=== PATIENT | female | born 1940 | race Caucasian/White ===

== ENCOUNTER 2017-09-10 16:09 | Inpatient (IN) ==
[2017-09-10 17:06] LABS: Basophils # 0.1 10*3/uL (0.0-0.2); Basophils % 0.6 % (0.0-0.8); Eosinophils # 0.3 10*3/uL (0.0-0.87); Eosinophils % 2.2 % (0.00-10.9); Hematocrit 39.2 VOL% (35.7-47.0); Hemoglobin 13.4 GM/DL (12.0-16.0); Immature Granulocytes % 0.6 %; Immature Granulocytes Absolute 0.08 #; Lymphocytes # 2.2 10*3/uL (1.4-4.0); Lymphocytes % 15.3 % (21.3-54.2); Mean Corpuscular HGB Conc 34.2 GM/DL (32-36); Mean Corpuscular Hemoglobin 34 PG (27-34); Mean Platelet Volume 9.7 FL (9.6-12.0); Monocytes # 1.1 10*3/uL (0.11-0.8); Monocytes % 7.8 % (1.7-12.7); Neutrophils # 10.6 10*3/uL (1.4-7.4); Neutrophils % 73.5 % (38.7-73.9); Platelet Count 350 T/CUMM (130-400); Red Blood Count 3.92 MC/CUMM (3.8-5.5); Red Cell Distribution Width 12.6 % (9.3-17.3); White Blood Count 14.4 T/CUMM (4-12)
[2017-09-10 17:14] LABS: PT Patient Result 10.8 SECS; Partial Thromboplastin Time 24.9 SECS (0-40)
[2017-09-10 17:27] LABS: Alanine Aminotransferase 31 U/L (13-56); Albumin 3.7 G/DL (3.4-5.0); Alkaline Phosphatase 56 U/L (45-117); Amylase 13 U/L (25-115); Aspartate Amino Transferase 21 U/L (0-37); Bilirubin,Total < 0.39 MG/DL (0.2-1.0); Blood Urea Nitrogen 27 MG/DL (7-18); Glucose 113 MG/DL (74-106); Sodium 136 MMOL/L (136-145)
[2017-09-10 17:28] LABS: Troponin I Only < 0.015 NG/ML (0.00-0.045)
[2017-09-10] MEDS ORDERED: SODIUM CHLORIDE 0.9% 1,000 ML IV STA (17:40)
[2017-09-10 18:07] LABS: Lactic Acid 1.5 MMOL/L (0.4-2.0)
[2017-09-10 18:51] LABS: Apearance,Urine CLEAR (Clear); Bilirubin,Urine Negative (Negative); Blood, Urine Moderate mg/dL (Negative); Glucose,Urine (UA) Negative (Negative); Hyaline Casts,Urine 3 /LPF (0-3); Ketones,Urine Negative (Negative); Mucus,Urine Occasional /LPF (Occasional); Nitrite,Urine Negative (Negative); Protein,Urine Negative; RBC,Urine 14 /HPF (0-4); Squamous Epithelial Cell,Urine Occasional /HPF (0-10); Urine Color Yellow (Yellow); Urine Specific Gravity 1.013 (1.001-1.035); Urine Urobilinogen < 2.0 EU/DL (0.2-1.0); WBC,Urine 1 /HPF (0-6)
[2017-09-10] MEDS ORDERED: LEVOFLOXACIN INJ 750 MG in PREMIX 1 EACH IV STA (19:48)
[2017-09-10] MEDS ORDERED: ONDANSETRON 4 MG/2 ML VIAL IV PRN (21:13)
[2017-09-10] MEDS ORDERED: ACETAMINOPHEN 325 MG TABLET PO PRN (21:13)
[2017-09-10] MEDS: LEVOFLOXACIN INJ 750 MG in PREMIX 1 EACH IV SCH (22:11)
[2017-09-10] MEDS: DOCUSATE SODIUM 100 MG CAPSULE PO SCH (22:12)
[2017-09-10] MEDS: ALBUTEROL/IPRATROPIUM 3 ML NEB RESP TX SCH (23:57)
[2017-09-11] MEDS: ALBUTEROL/IPRATROPIUM 3 ML NEB RESP TX SCH ×4 (08:11→19:28)
[2017-09-11] MEDS: DOCUSATE SODIUM 100 MG CAPSULE PO SCH ×2 (09:44→21:37)
[2017-09-11] MEDS: CALCIUM (CARBONATE)/VITAMIN D 500 MG-200 UNIT TABLET PO SCH (09:45)
[2017-09-11] MEDS: POTASSIUM CHLORIDE 20 MEQ TABLET PO SCH (09:46)
[2017-09-11] MEDS: CHOLECALCIFEROL 1,000 UNIT TABLET PO SCH (09:46)
[2017-09-11] MEDS: CARVEDILOL 3.125 MG TABLET PO SCH ×2 (09:46→21:37)
[2017-09-11] MEDS: FUROSEMIDE 40 MG TABLET PO SCH (09:46)
[2017-09-11] MEDS: LOSARTAN 25 MG TABLET PO SCH ×2 (09:46→21:37)
[2017-09-11] MEDS: PANTOPRAZOLE 40 MG TABLET PO SCH (09:46)
[2017-09-11] MEDS: FENOFIBRATE 145 MG TABLET PO SCH (21:36)
[2017-09-11] MEDS: ASPIRIN EC 81 MG TABLET PO SCH (21:36)
[2017-09-11] MEDS: FOLIC ACID 1 MG TABLET PO SCH (21:37)
[2017-09-11] MEDS: SIMVASTATIN 20 MG TABLET PO SCH (21:37)
[2017-09-12] MEDS: ALBUTEROL/IPRATROPIUM 3 ML NEB RESP TX SCH ×4 (00:29→18:54)
[2017-09-12] MEDS: DOCUSATE SODIUM 100 MG CAPSULE PO SCH ×2 (08:06→22:40)
[2017-09-12] MEDS: CARVEDILOL 3.125 MG TABLET PO SCH ×2 (09:03→22:16)
[2017-09-12] MEDS: LOSARTAN 25 MG TABLET PO SCH ×2 (09:03→22:17)
[2017-09-12] MEDS: PANTOPRAZOLE 40 MG TABLET PO SCH (09:03)
[2017-09-12] MEDS: POTASSIUM CHLORIDE 20 MEQ TABLET PO SCH (09:03)
[2017-09-12] MEDS: FUROSEMIDE 40 MG TABLET PO SCH (09:03)
[2017-09-12] MEDS: CHOLECALCIFEROL 1,000 UNIT TABLET PO SCH (09:04)
[2017-09-12] MEDS: CALCIUM (CARBONATE)/VITAMIN D 500 MG-200 UNIT TABLET PO SCH (09:05)
[2017-09-12] MEDS: HYDROcodone/HOMATROPINE 5 ML UDCUP PO PRN ×2 (11:23→23:57)
[2017-09-12] MEDS: LEVOFLOXACIN INJ 750 MG in PREMIX 1 EACH IV SCH (22:15)
[2017-09-12] MEDS: FOLIC ACID 1 MG TABLET PO SCH (22:16)
[2017-09-12] MEDS: ASPIRIN EC 81 MG TABLET PO SCH (22:17)
[2017-09-12] MEDS: FENOFIBRATE 145 MG TABLET PO SCH (22:17)
[2017-09-12] MEDS: SIMVASTATIN 20 MG TABLET PO SCH (22:17)
[2017-09-13] MEDS: ALBUTEROL/IPRATROPIUM 3 ML NEB RESP TX SCH ×4 (00:29→18:40)
[2017-09-13] MEDS: DOCUSATE SODIUM 100 MG CAPSULE PO SCH ×2 (09:30→20:35)
[2017-09-13] MEDS: CALCIUM (CARBONATE)/VITAMIN D 500 MG-200 UNIT TABLET PO SCH (09:31)
[2017-09-13] MEDS: POTASSIUM CHLORIDE 20 MEQ TABLET PO SCH (09:31)
[2017-09-13] MEDS: CARVEDILOL 3.125 MG TABLET PO SCH ×2 (09:31→20:36)
[2017-09-13] MEDS: PANTOPRAZOLE 40 MG TABLET PO SCH (09:31)
[2017-09-13] MEDS: LOSARTAN 25 MG TABLET PO SCH ×2 (09:32→20:36)
[2017-09-13] MEDS: CHOLECALCIFEROL 1,000 UNIT TABLET PO SCH (09:32)
[2017-09-13] MEDS: FUROSEMIDE 40 MG TABLET PO SCH (09:32)
[2017-09-13] MEDS: FENOFIBRATE 145 MG TABLET PO SCH (20:34)
[2017-09-13] MEDS: SIMVASTATIN 20 MG TABLET PO SCH (20:35)
[2017-09-13] MEDS: FOLIC ACID 1 MG TABLET PO SCH (20:36)
[2017-09-13] MEDS: ASPIRIN EC 81 MG TABLET PO SCH (20:36)
[2017-09-14] MEDS: ALBUTEROL/IPRATROPIUM 3 ML NEB RESP TX SCH ×3 (00:10→12:58)
[2017-09-14] MEDS: PANTOPRAZOLE 40 MG TABLET PO SCH (08:13)
[2017-09-14] MEDS: FUROSEMIDE 40 MG TABLET PO SCH (08:13)
[2017-09-14] MEDS: POTASSIUM CHLORIDE 20 MEQ TABLET PO SCH (08:13)
[2017-09-14] MEDS: CALCIUM (CARBONATE)/VITAMIN D 500 MG-200 UNIT TABLET PO SCH (08:14)
[2017-09-14] MEDS: CHOLECALCIFEROL 1,000 UNIT TABLET PO SCH (08:14)
[2017-09-14] MEDS: LOSARTAN 25 MG TABLET PO SCH (08:14)
[2017-09-14] MEDS: CARVEDILOL 3.125 MG TABLET PO SCH (08:14)
[2017-09-14] MEDS: DOCUSATE SODIUM 100 MG CAPSULE PO SCH (08:14)
[2017-09-14 11:50] VITALS: BP 108/50
[2017-09-17] MEDS ORDERED: ESTROGENS (CONJ) 0.625 MG TABLET PO SCH (09:00)
== END 2017-09-14 16:41 | disposition home or self-care (01) | DRG 194 ==
LOC: EDUNIT# → EDBD → N.ED 16:09 → N.EDINP 19:56 → N.2E 20:34
PROVIDERS: ADMIT Family Medicine; ATTEND Family Medicine

== ENCOUNTER 2022-06-08 11:51 | Observation (INO) ==
[2022-06-08 12:25] LABS: Basophils # 0.1 10*3/uL (0.0-0.2); Basophils % 1.1 % (0.0-0.8); Eosinophils # 0.1 10*3/uL (0.0-0.87); Eosinophils % 1.2 % (0.00-10.9); Hematocrit 44.7 VOL% (35.7-47.0); Hemoglobin 14.5 GM/DL (12.0-16.0); Immature Granulocytes % 0.4 %; Immature Granulocytes Absolute 0.03 #; Lymphocytes # 1.8 10*3/uL (1.4-4.0); Lymphocytes % 24.9 % (21.3-54.2); Mean Corpuscular HGB Conc 32.4 GM/DL (32-36); Mean Corpuscular Volume 103.2 FL (87-102); Mean Platelet Volume 9.2 FL (9.6-12.0); Monocytes # 0.4 10*3/uL (0.11-0.8); Monocytes % 5.7 % (1.7-12.7); Neutrophils % 66.7 % (38.7-73.9); Platelet Count 326 T/CUMM (130-400); Red Blood Count 4.33 MC/CUMM (3.8-5.5); Red Cell Distribution Width 12.6 % (9.3-17.3); White Blood Count 7.34 T/CUMM (4-12)
[2022-06-08 12:34] LABS: PT Patient Result 11.4 SECS (10.1-12.1)
[2022-06-08 12:43] LABS: Albumin 4.1 G/DL (3.4-5.0); Bilirubin,Total 0.6 MG/DL (0.20-1.00); Calcium 9.7 MG/DL (8.5-10.1); Osmolality,Calculated 277.8 MOS/KG (273-304); Potassium 4.6 MMOL/L (3.5-5.1); Total Protein 7.9 G/DL (6.4-8.2)
[2022-06-08 12:48] LABS: Bacteria,Urine Occasional /HPF (Few); Mucus,Urine Occasional /LPF (Occasional); Squamous Epithelial Cell,Urine Occasional /HPF (0-10)
[2022-06-08 12:49] LABS: Bilirubin,Urine Negative (Negative); Blood, Urine Trace mg/dL (Negative); Glucose,Urine (UA) Negative (Negative); Ketones,Urine Negative (Negative); Nitrite,Urine Negative (Negative); Protein,Urine Negative (Negative); Urine Appearance Clear (Clear); Urine Color Yellow (Yellow); Urine Urobilinogen 0.2 eU/dL (<2.0)
[2022-06-08] MEDS ORDERED: ASPIRIN 325 MG TABLET PO STA (13:11)
[2022-06-08] MEDS ORDERED: SODIUM CHLORIDE 0.9% 500 ML IV STA (13:11)
[2022-06-08] MEDS ORDERED: ONDANSETRON 4 MG/2 ML VIAL IV PRN (13:12)
[2022-06-08] MEDS ORDERED: ACETAMINOPHEN 325 MG TABLET PO PRN ×2 (13:12→15:07)
[2022-06-08] MEDS ORDERED: ENOXAPARIN 40 MG/0.4 ML SYRINGE SUBCUT SCH (13:30)
[2022-06-08] MEDS: SODIUM CHLORIDE 0.9% 1,000 ML IV SCH (14:53)
[2022-06-08 18:24] LABS: Calcium 9.5 MG/DL (8.5-10.1); Osmolality,Calculated 280.5 MOS/KG (273-304); Potassium 4.3 MMOL/L (3.5-5.1)
[2022-06-08] MEDS ORDERED: FOLIC ACID 1 MG TABLET PO SCH (21:00)
[2022-06-08] MEDS ORDERED: ASPIRIN EC 81 MG TABLET PO SCH (21:00)
[2022-06-08] MEDS ORDERED: FENOFIBRATE 145 MG TABLET PO SCH (21:00)
[2022-06-08] MEDS ORDERED: SIMVASTATIN 20 MG TABLET PO SCH (21:00)
[2022-06-08] MEDS: FUROSEMIDE 40 MG TABLET PO SCH (21:18)
[2022-06-08] MEDS: DOCUSATE SODIUM 100 MG CAPSULE PO SCH (21:19)
[2022-06-08] MEDS: LOSARTAN 25 MG TABLET PO SCH (21:19)
[2022-06-08] MEDS: FLECAINIDE 100 MG TABLET PO SCH (21:24)
[2022-06-09] MEDS: SODIUM CHLORIDE 0.9% 1,000 ML IV SCH ×2 (01:56→06:51)
[2022-06-09 05:45] LABS: Basophils # 0.1 10*3/uL (0.0-0.2); Basophils % 1.3 % (0.0-0.8); Eosinophils # 0.2 10*3/uL (0.0-0.87); Hematocrit 37.3 VOL% (35.7-47.0); Hemoglobin 11.6 GM/DL (12.0-16.0); Immature Granulocytes % 0.5 %; Immature Granulocytes Absolute 0.03 #; Lymphocytes # 2.3 10*3/uL (1.4-4.0); Lymphocytes % 41.8 % (21.3-54.2); Mean Corpuscular HGB Conc 31.1 GM/DL (32-36); Mean Corpuscular Volume 108.1 FL (87-102); Mean Platelet Volume 9.1 FL (9.6-12.0); Monocytes # 0.5 10*3/uL (0.11-0.8); Neutrophils % 43.4 % (38.7-73.9); Platelet Count 243 T/CUMM (130-400); Red Blood Count 3.45 MC/CUMM (3.8-5.5); White Blood Count 5.46 T/CUMM (4-12)
[2022-06-09 06:13] LABS: Calcium 9.1 MG/DL (8.5-10.1); Potassium 4.6 MMOL/L (3.5-5.1)
[2022-06-09 06:31] LABS: Bilirubin,Total 0.4 MG/DL (0.20-1.00); Calcium 9.1 MG/DL (8.5-10.1); Potassium 4.3 MMOL/L (3.5-5.1); Total Protein 5.9 G/DL (6.4-8.2)
[2022-06-09] MEDS: FLECAINIDE 100 MG TABLET PO SCH (08:20)
[2022-06-09] MEDS: FUROSEMIDE 40 MG TABLET PO SCH (08:20)
[2022-06-09] MEDS: LOSARTAN 25 MG TABLET PO SCH (08:21)
[2022-06-09] MEDS: DOCUSATE SODIUM 100 MG CAPSULE PO SCH (08:21)
[2022-06-09] MEDS ORDERED: UMECLIDINIUM VILANTEROL INH SCH (09:00)
[2022-06-09] MEDS ORDERED: ACTUATION BL INH SCH (09:00)
[2022-06-09] MEDS ORDERED: CALCIUM (CARBONATE)/VITAMIN D 600 MG-400 UNIT TABLET PO SCH (09:00)
[2022-06-09] MEDS ORDERED: POTASSIUM CHLORIDE 10 MEQ TABLET PO SCH (09:00)
[2022-06-09] MEDS ORDERED: APIXABAN 5 MG TABLET PO SCH ×2 (09:00→21:00)
[2022-06-09] MEDS ORDERED: atenoloL 25 MG TABLET PO SCH (09:00)
[2022-06-09] MEDS ORDERED: PANTOPRAZOLE 40 MG TABLET PO SCH (09:00)
[2022-06-09 15:40] VITALS: BP 114/49
[2022-06-10] MEDS ORDERED: METHOTREXATE 2.5 MG TABLET PO SCH (09:00)
== END 2022-06-09 16:40 | disposition home or self-care (01) ==
LOC: N.ED 11:51 → N.2W 11:51
PROVIDERS: ADMIT Family Medicine; ATTEND Family Medicine